=== PATIENT | female | born 1950 | race Caucasian/White ===

== ENCOUNTER 2022-07-14 14:46 | Inpatient (IN) | payer MEDICARE, OTHER ==
[2022-07-14 17:05] LABS: CARBON DIOXIDE,CO2 29.5 mmol/L (21.0-32.0); POTASSIUM,K 3.4 mmol/L (3.5-5.1)
[2022-07-14] MEDS ORDERED: Iopamidol 755 MG/ML 500 ML Multipack Bottle IVPUSH STA (18:45)
[2022-07-14] MEDS ORDERED: Furosemide 40 MG/4 ML VIAL IVPUSH ONE (20:31)
[2022-07-14 20:50] LABS: CORONAVIRUS COVID-19 NAA POSITIVE (NEGATIVE); INFLUENZA A NAA NEGATIVE (NEGATIVE); INFLUENZA B NAA NEGATIVE (NEGATIVE)
[2022-07-14] MEDS ORDERED: Albuterol/Ipratropium 3.0-0.5 MG/3 ML Neb Soln NEB PRN (23:42)
[2022-07-14] MEDS ORDERED: Ondansetron 4 MG/2 ML SDV IVPUSH PRN (23:42)
[2022-07-14] MEDS ORDERED: Potassium Chloride 10% 20 MEQ/15 ML Soln 30 ML UD Cup PO ONE (23:52)
[2022-07-15] MEDS: Pantoprazole 40 MG in Sodium Chloride 0.9% 10 ML IVPUSH SCH ×2 (00:26→23:24)
[2022-07-15] MEDS: oxyCODONE 5 MG Tab PO PRN ×3 (00:27→21:43)
[2022-07-15 07:49] LABS: BLOOD UREA NITROGEN,BUN 12 mg/dL (7.0-18.0); CARBON DIOXIDE,CO2 28.4 mmol/L (21.0-32.0); CHLORIDE,CL 98 mmol/L (98-107); GLUCOSE RANDOM 73 mg/dL (74-106); POTASSIUM,K 4.4 mmol/L (3.5-5.1); SODIUM,NA 134 mmol/L (136-145)
[2022-07-15 07:52] LABS: ESTIMATED GFR 96 mL/min (>60)
[2022-07-15] MEDS: Levothyroxine 50 MCG Tab PO SCH (08:37)
[2022-07-15] MEDS: Docusate Sodium 100 MG Cap PO SCH (08:37)
[2022-07-15] MEDS ORDERED: Furosemide 20 MG/2 ML VIAL IVPUSH SCH (09:00)
[2022-07-15] MEDS ORDERED: Aspirin 81 MG Tab.EC PO SCH (09:00)
[2022-07-15] MEDS ORDERED: Furosemide 20 MG/2 ML VIAL IVPUSH ONE (11:45)
[2022-07-15] MEDS ORDERED: Clopidogrel 75 MG Tab PO SCH (13:00)
[2022-07-15] MEDS: Gabapentin 300 MG Cap PO SCH ×2 (18:07→20:49)
[2022-07-15] MEDS: atorvaSTATin 40 MG Tab PO SCH (20:48)
[2022-07-15] MEDS: Topiramate 100 MG Tab PO SCH (20:49)
[2022-07-15] MEDS: Furosemide 40 MG/4 ML VIAL IVPUSH SCH ×2 (20:49→20:59)
[2022-07-15] MEDS: Primidone 50 MG Tab PO SCH (20:49)
[2022-07-16] MEDS: Levothyroxine 50 MCG Tab PO SCH (06:31)
[2022-07-16] MEDS: oxyCODONE 5 MG Tab PO PRN ×2 (07:05→19:45)
[2022-07-16 07:32] LABS: BLOOD UREA NITROGEN,BUN 12 mg/dL (7.0-18.0); CARBON DIOXIDE,CO2 30.1 mmol/L (21.0-32.0); CHLORIDE,CL 97 mmol/L (98-107); GLUCOSE RANDOM 81 mg/dL (74-106); POTASSIUM,K 3.7 mmol/L (3.5-5.1); SODIUM,NA 135 mmol/L (136-145)
[2022-07-16 07:36] LABS: ESTIMATED GFR 96 mL/min (>60)
[2022-07-16] MEDS: Topiramate 50 MG Tab PO SCH (10:07)
[2022-07-16] MEDS: Docusate Sodium 100 MG Cap PO SCH (10:07)
[2022-07-16] MEDS: Furosemide 40 MG/4 ML VIAL IVPUSH SCH ×2 (10:08→20:21)
[2022-07-16] MEDS: Gabapentin 300 MG Cap PO SCH ×2 (17:15→20:21)
[2022-07-16] MEDS: Acetaminophen 325 MG Tab PO PRN ×2 (17:16→23:40)
[2022-07-16] MEDS: Topiramate 100 MG Tab PO SCH (20:21)
[2022-07-16] MEDS: atorvaSTATin 40 MG Tab PO SCH (20:21)
[2022-07-16] MEDS: Primidone 50 MG Tab PO SCH (20:21)
[2022-07-16] MEDS: Pantoprazole 40 MG in Sodium Chloride 0.9% 10 ML IVPUSH SCH (23:42)
[2022-07-17 06:21] LABS: BLOOD UREA NITROGEN,BUN 11 mg/dL (7.0-18.0); CARBON DIOXIDE,CO2 32.4 mmol/L (21.0-32.0); CHLORIDE,CL 97 mmol/L (98-107); GLUCOSE RANDOM 90 mg/dL (74-106); POTASSIUM,K 3.2 mmol/L (3.5-5.1); SODIUM,NA 135 mmol/L (136-145)
[2022-07-17 06:22] LABS: ESTIMATED GFR 96 mL/min (>60)
[2022-07-17] MEDS: Levothyroxine 50 MCG Tab PO SCH (06:44)
[2022-07-17] MEDS: oxyCODONE 5 MG Tab PO PRN ×3 (07:01→18:45)
[2022-07-17] MEDS: Docusate Sodium 100 MG Cap PO SCH (08:39)
[2022-07-17] MEDS: Topiramate 50 MG Tab PO SCH (08:39)
[2022-07-17] MEDS: Furosemide 40 MG/4 ML VIAL IVPUSH SCH (08:39)
[2022-07-17] MEDS: Potassium Chloride 20 MEQ Tab.ER PO SCH (09:54)
[2022-07-17] MEDS ORDERED: Iopamidol 755 MG/ML 500 ML Multipack Bottle IVPUSH STA (10:55)
[2022-07-17] MEDS ORDERED: Potassium Chloride 20 MEQ Tab.ER PO ONE (11:38)
[2022-07-17] MEDS: Acetaminophen 325 MG Tab PO PRN ×2 (14:59→22:54)
[2022-07-17] MEDS: Gabapentin 300 MG Cap PO SCH ×2 (16:41→21:31)
[2022-07-17] MEDS: Primidone 50 MG Tab PO SCH (21:31)
[2022-07-17] MEDS: Topiramate 100 MG Tab PO SCH (21:31)
[2022-07-17] MEDS: atorvaSTATin 40 MG Tab PO SCH (21:31)
[2022-07-17] MEDS: Pantoprazole 40 MG in Sodium Chloride 0.9% 10 ML IVPUSH SCH (22:54)
[2022-07-18] MEDS: oxyCODONE 5 MG Tab PO PRN ×3 (05:00→20:28)
[2022-07-18] MEDS: Levothyroxine 50 MCG Tab PO SCH (06:57)
[2022-07-18] MEDS: Acetaminophen 325 MG Tab PO PRN (07:16)
[2022-07-18] MEDS: Docusate Sodium 100 MG Cap PO SCH (08:02)
[2022-07-18] MEDS: Potassium Chloride 20 MEQ Tab.ER PO SCH (08:03)
[2022-07-18] MEDS: Topiramate 50 MG Tab PO SCH (08:03)
[2022-07-18 08:58] LABS: CARBON DIOXIDE,CO2 28.7 mmol/L (21.0-32.0); POTASSIUM,K 3.5 mmol/L (3.5-5.1)
[2022-07-18] MEDS ORDERED: Furosemide 40 MG/4 ML VIAL IVPUSH ONE (12:20)
[2022-07-18] MEDS: Gabapentin 300 MG Cap PO SCH ×2 (18:39→20:27)
[2022-07-18] MEDS: Primidone 50 MG Tab PO SCH (20:27)
[2022-07-18] MEDS: atorvaSTATin 40 MG Tab PO SCH (20:27)
[2022-07-18] MEDS: Topiramate 100 MG Tab PO SCH (20:27)
[2022-07-18] MEDS: Pantoprazole 40 MG in Sodium Chloride 0.9% 10 ML IVPUSH SCH (23:33)
[2022-07-19] MEDS: oxyCODONE 5 MG Tab PO PRN ×2 (06:48→20:57)
[2022-07-19] MEDS: Levothyroxine 50 MCG Tab PO SCH (06:48)
[2022-07-19] MEDS: Potassium Chloride 20 MEQ Tab.ER PO SCH (10:58)
[2022-07-19] MEDS: Docusate Sodium 100 MG Cap PO SCH (10:58)
[2022-07-19] MEDS: Topiramate 50 MG Tab PO SCH (10:59)
[2022-07-19 11:35] LABS: CARBON DIOXIDE,CO2 27.9 mmol/L (21.0-32.0); POTASSIUM,K 3.6 mmol/L (3.5-5.1)
[2022-07-19] MEDS: Gabapentin 300 MG Cap PO SCH ×2 (20:14→20:59)
[2022-07-19] MEDS: Primidone 50 MG Tab PO SCH (20:58)
[2022-07-19] MEDS: atorvaSTATin 40 MG Tab PO SCH (21:00)
[2022-07-19] MEDS: Topiramate 100 MG Tab PO SCH (21:00)
[2022-07-19] MEDS: Pantoprazole 40 MG in Sodium Chloride 0.9% 10 ML IVPUSH SCH (22:57)
[2022-07-20] MEDS: Acetaminophen 325 MG Tab PO PRN (00:09)
[2022-07-20] MEDS: oxyCODONE 5 MG Tab PO PRN ×2 (04:20→12:11)
[2022-07-20] MEDS: Levothyroxine 50 MCG Tab PO SCH ×2 (06:23→06:41)
[2022-07-20] MEDS: Topiramate 50 MG Tab PO SCH (08:54)
[2022-07-20] MEDS: Docusate Sodium 100 MG Cap PO SCH (08:54)
[2022-07-20] MEDS: Potassium Chloride 20 MEQ Tab.ER PO SCH (08:54)
[2022-07-20] MEDS: Gabapentin 300 MG Cap PO SCH (16:58)
== END 2022-07-20 19:00 | disposition home or self-care (01) | DRG 177 ==
LOC: MW.ED 14:46 → MW.MS 21:00
PROVIDERS: ADMIT Student in an Organized Health Care Education/Training Program; ATTEND Student in an Organized Health Care Education/Training Program
PROC: 8E0ZXY6 Isolation (ICD-10-PCS; principal; 2022-07-14)
PROC: 30233N1 Transfusion of Nonautologous Red Blood Cells into Peripheral Vein, Percutaneous Approach (ICD-10-PCS; 2022-07-17)
DX: U07.1 COVID-19 (principal); R09.02 Hypoxemia; Z88.8 Allergy status to other drugs, medicaments and biological substances; J96.01 Acute respiratory failure with hypoxia; I25.10 Atherosclerotic heart disease of native coronary artery without angina pectoris; E78.5 Hyperlipidemia, unspecified; E03.9 Hypothyroidism, unspecified; Z66 Do not resuscitate; I11.0 Hypertensive heart disease with heart failure; I50.9 Heart failure, unspecified; F32.A Depression, unspecified; E87.6 Hypokalemia; D64.9 Anemia, unspecified; S30.1XXA Contusion of abdominal wall, initial encounter; W18.30XA Fall on same level, unspecified, initial encounter; Y92.89 Other specified places as the place of occurrence of the external cause; Z79.899 Other long term (current) drug therapy; Z87.81 Personal history of (healed) traumatic fracture; Z79.890 Hormone replacement therapy; Z86.73 Personal history of transient ischemic attack (TIA), and cerebral infarction without residual deficits; Z88.5 Allergy status to narcotic agent; Z79.82 Long term (current) use of aspirin; I25.2 Old myocardial infarction
CPT/HCPCS: 0240U; 36415; 71275; 74176; 74177; 80048; 80053; 81003; 82947; 83605; 83735; 83880; 84100; 84484; 85014; 85018; 85025; 85610; 87040; 93005; 93306; 97110; 97163; 97530; 99285; 36430; 86850; 86900; 86901; 86920; 93010; A9270-GY; C9113; J1940; J3490; P9016; Q9967

== ENCOUNTER 2022-12-31 13:51 | Emergency (ER) | payer MEDICARE, OTHER ==
[2022-12-31] MEDS ORDERED: Sodium Chloride 0.9% 1,000 ML IV STA (14:27)
[2022-12-31] MEDS ORDERED: fentaNYL 50 MCG/ML SDV IVPUSH STA (14:30)
[2022-12-31 15:23] LABS: CARBON DIOXIDE,CO2 29.2 mmol/L (21.0-32.0); POTASSIUM,K 3.9 mmol/L (3.5-5.1)
[2022-12-31 15:39] LABS: CORONAVIRUS COVID-19 NAA NEGATIVE (NEGATIVE); INFLUENZA A NAA NEGATIVE (NEGATIVE); INFLUENZA B NAA NEGATIVE (NEGATIVE)
[2022-12-31] MEDS ORDERED: Iopamidol 755 MG/ML 500 ML Multipack Bottle IVPUSH ONE (16:28)
[2022-12-31] MEDS ORDERED: Morphine 2 MG/ML SYRINGE IVPUSH STA (17:29)
[2022-12-31] MEDS ORDERED: cefTRIAXone 1 GM in Sodium Chloride 0.9% 50 ML IV STA (18:02)
== END 2022-12-31 19:49 | disposition home or self-care (01) ==
LOC: MW.ED 13:51
DX: N30.00 Acute cystitis without hematuria (principal); K56.41 Fecal impaction; I11.0 Hypertensive heart disease with heart failure; I50.9 Heart failure, unspecified; I25.2 Old myocardial infarction; E78.00 Pure hypercholesterolemia, unspecified; E78.5 Hyperlipidemia, unspecified; J44.9 Chronic obstructive pulmonary disease, unspecified; E03.9 Hypothyroidism, unspecified; Z87.891 Personal history of nicotine dependence; Z88.5 Allergy status to narcotic agent; Z79.82 Long term (current) use of aspirin; Z79.899 Other long term (current) drug therapy; Z86.73 Personal history of transient ischemic attack (TIA), and cerebral infarction without residual deficits; Z20.822 Contact with and (suspected) exposure to COVID-19
CPT/HCPCS: 0240U; 36415; 74177; 80053; 81001; 83690; 83735; 84443; 85025; 87086; 87088; 87186; 93005; 96361; 96365; 96375; 99284; J0696; J2270; J3010; J7030; J7050; Q9967; 93010